=== PATIENT | female | born 1995 | race Caucasian/White ===

== ENCOUNTER 2017-06-09 00:14 | Emergency (ER) | payer OTHER ==
[~2017-06-09] VITALS: Ht 157.5 cm; Wt 79.4 kg
[2017-06-09] MEDS ORDERED: PRENATAL + DHA1 EAC1 (00:26)
== END 2017-06-09 10:55 | disposition home or self-care (01) ==
LOC: ER 00:14
DX: N39.0 Urinary tract infection, site not specified (principal); R50.9 Fever, unspecified

== ENCOUNTER 2018-07-05 12:17 | Emergency (ER) | payer OTHER ==
[~2018-07-05] VITALS: Ht 154.9 cm; Wt 82.6 kg
[~2018-07-05 12:17] MED LIST: PRENATAL + DHA1 EAC1
== END 2018-07-05 15:51 | disposition home or self-care (01) ==
LOC: ER 12:17
DX: K29.70 Gastritis, unspecified, without bleeding (principal)

== ENCOUNTER 2019-12-24 11:31 | Inpatient (IN) | payer OTHER ==
[~2019-12-24] VITALS: Ht 157.5 cm; Wt 3.6 kg
[2019-12-29] MEDS ORDERED: PRENATAL PLUS1 EAC1 PO (09:27)
== END 2019-12-31 12:55 | DRG 785 ==
LOC: O/R 12-29 09:00 → LDR 12-29 09:00 → OB/GYN 12-29 09:00 → O/R 12-29 11:18 → ADM 12-29 11:30 → SURH 12-29 11:30 → EDSTATUS 12-29 11:30 → OB/GYN 12-29 14:23
PROVIDERS: ADMIT Specialist; ATTEND Specialist
PROC: 0U570ZZ Destruction of Bilateral Fallopian Tubes, Open Approach (ICD-10-PCS; 2019-12-29)
PROC: 4A0HXFZ Measurement of Products of Conception, Cardiac Rhythm, External Approach (ICD-10-PCS; 2019-12-29)
PROC: 10D00Z1 Extraction of Products of Conception, Low, Open Approach (ICD-10-PCS; principal; 2019-12-29 11:15)
DX: O82 Encounter for cesarean delivery without indication (principal); O34.211 Maternal care for low transverse scar from previous cesarean delivery; Z37.0 Single live birth; Z3A.38 38 weeks gestation of pregnancy; Z30.2 Encounter for sterilization